=== PATIENT | female | born 1990 | race Two or more races ===

== ENCOUNTER 2019-09-01 09:17 | Emergency (ER) | payer OTHER ==
[~2019-09-01] VITALS: Ht 154.9 cm; Wt 74.8 kg
[2019-09-01] MEDS ORDERED: DIALYVITE 800-1 EACH PO (10:03)
[2019-09-01] MEDS ORDERED: KEFLEX500 MG PO (13:00)
== END 2019-09-01 13:22 | disposition home or self-care (01) ==
LOC: ER 09:17
DX: O98.812 Other maternal infectious and parasitic diseases complicating pregnancy, second trimester (principal); B37.3 Candidiasis of vulva and vagina

== ENCOUNTER 2019-09-09 11:44 | Outpatient (CLI) | payer OTHER ==
[~2019-09-09 11:44] MED LIST changes: -CEFADROXIL500 MG PO
[2019-09-09] MEDS ORDERED: CEFADROXIL500 MG PO (18:13)
== END 2019-09-09 18:21 | disposition home or self-care (01) ==
LOC: OBS/DEL 11:44
DX: O23.42 Unspecified infection of urinary tract in pregnancy, second trimester (principal)

== ENCOUNTER → 2019-09-09 | Emergency (ER) | payer OTHER ==
[~2019-09-09] VITALS: Ht 154.9 cm; Wt 75.3 kg
[~2019-09-09] MED LIST: CEFADROXIL500 MG PO; DIALYVITE 800-1 EACH PO; KEFLEX500 MG PO; PRENATAL + DHA1 EAC1
== END | disposition still patient (30) ==
LOC: ER 09:07
DX: O23.42 Unspecified infection of urinary tract in pregnancy, second trimester (principal)

== ENCOUNTER 2020-01-07 12:46 | Inpatient (IN) | payer OTHER ==
[~2020-01-07] VITALS: Ht 154.9 cm; Wt 3.2 kg
[~2020-01-07 12:46] MED LIST changes: +CEFADROXIL500 MG PO
== END 2020-01-11 15:01 | disposition home or self-care (01) | DRG 783 ==
LOC: LDR 12:46 → MEDJ 01-08 00:37 → OB/GYN 01-10 12:15
PROVIDERS: ADMIT Specialist; ATTEND Specialist
PROC: 0UB70ZZ Excision of Bilateral Fallopian Tubes, Open Approach (ICD-10-PCS; 2020-01-08)
PROC: 4A1HXFZ Monitoring of Products of Conception, Cardiac Rhythm, External Approach (ICD-10-PCS; 2020-01-08)
PROC: 3E033VJ Introduction of Other Hormone into Peripheral Vein, Percutaneous Approach (ICD-10-PCS; 2020-01-08)
PROC: 10907ZC Drainage of Amniotic Fluid, Therapeutic from Products of Conception, Via Natural or Artificial Opening (ICD-10-PCS; 2020-01-08)
PROC: 10D00Z1 Extraction of Products of Conception, Low, Open Approach (ICD-10-PCS; principal; 2020-01-08 07:00)
DX: O62.1 Secondary uterine inertia (principal); O60.14X0 Preterm labor third trimester with preterm delivery third trimester, not applicable or unspecified; U07.1 COVID-19; O98.52 Other viral diseases complicating childbirth; Z30.2 Encounter for sterilization; Z3A.36 36 weeks gestation of pregnancy; Z37.0 Single live birth; O90.81 Anemia of the puerperium

== ENCOUNTER 2020-01-13 16:00 | Emergency (ER) | payer OTHER ==
[~2020-01-13] VITALS: Ht 154.9 cm; Wt 74.8 kg
== END 2020-01-13 20:38 | disposition home or self-care (01) ==
LOC: ER 16:00
DX: O86.09 Infection of obstetric surgical wound, other surgical site (principal)